=== PATIENT | male | born 1960 | race Caucasian/White ===

== ENCOUNTER 2024-12-29 14:19 | Observation (INO) | payer OTHER ==
[2024-12-29 14:30] VITALS: BMI 27.3
[2024-12-29 15:37] LABS: ABSOLUTE IMMATURE GRANULOCYTES 0.03 x10^3/uL (0.0-0.031); BASOPHILS # 0.02 x10^3/uL (0.01-0.08); EOSINOPHIL % 1.6 % (0.8-7.0); EOSINOPHILS # 0.12 x10^3/uL (0.04-0.54); HEMATOCRIT 33.7 % (40.1-51.0); MCHC 32.6 g/dl (32.3-36.5); MEAN CELL VOLUME 90.1 fl (79.0-92.2); MEAN PLT VOLUME 11.8 fl (9.4-12.4); MONOCYTE % 9.6 % (5.3-12.2); PLATELET COUNT 198 x10^3/uL (163-337); VENOUS BASE EXCESS -1.9 mmol/L (-2-2); VENOUS O2 SATURATION 39.6 % (70-80); VENOUS PCO2 48.9 mmHg (38-52); VENOUS PH 7.319 (7.310-7.410)
[2024-12-29] MEDS: LACTATED RINGERS SOLUTION 1000 ML INFUS.BAG IV ONE (15:43)
[2024-12-29 15:44] LABS: INR 0.96 (0.83-1.09); PROTHROMBIN TIME (PATIENT) 10.5 SEC (9.7-13.0)
[2024-12-29 15:47] LABS: ACTIVATED PTT 27.3 SECONDS (25.2-36.5)
[2024-12-29 15:52] LABS: EPI CELLS 5 /uL (0-25.1); HYALINE CASTS 0 /uL (0-3.1); URINE APPEARANCE CLEAR; URINE BACTERIA 2 /uL (0-1359); URINE BILIRUBIN NEGATIVE (NEGATIVE); URINE COLOR YELLOW; URINE GLUCOSE (UA) 3+ (NEGATIVE); URINE KETONE NEGATIVE (NEGATIVE); URINE LEUK ESTERASE NEGATIVE (NEGATIVE); URINE NITRITE NEGATIVE (NEGATIVE); URINE PROTEIN 2+ (NEGATIVE); URINE RBC 24 /uL (0-23.9); URINE UROBILINOGEN 0.2 mg/dL (0.2-1.0); URINE WBC 5 /uL (0-25.8)
[2024-12-29 16:00] LABS: CHLORIDE 102 mmol/L (98-107); SODIUM 135 mmol/L (136-145)
[2024-12-29 16:03] LABS: BLOOD UREA NITROGEN 51.4 mg/dL (7-18); CALCIUM 9.2 mg/dL (8.5-10.1); CO2 26 mmol/L (21-32)
[2024-12-29 16:06] LABS: SGOT/AST 14 U/L (15-37); SGPT/ALT 19 U/L (13-61)
[2024-12-29 16:08] LABS: BILIRUBIN,TOTAL 0.3 mg/dL (0.2-1); TOT PROT 6.9 g/dl (6.4-8.2)
[2024-12-29 16:09] LABS: ALK PHOS 121 U/L (45-117); ANION GAP 7 mmol/L (4-13); GLUCOSE,RANDOM 404 mg/dL (74-106); POTASSIUM 6.1 mmol/L (3.5-5.1)
[2024-12-29] MEDS ORDERED: ALBUTEROL SO4 0.083% IH SOL 2.5 MG/3 ML VIAL.NEB. NEB ONE (16:29)
[2024-12-29] MEDS ORDERED: INSULIN REGULAR HUMAN 100 UNITS/ML *VIAL ONE (16:30)
[2024-12-29] MEDS: ALBUTEROL SO4 0.083% IH SOL 2.5 MG/3 ML VIAL.NEB. NEB ONE (16:37)
[2024-12-29] MEDS: LOSARTAN POTASSIUM 50 MG TABLET PO ONE (17:44)
[2024-12-29] MEDS: CALCIUM GLUCONATE 10% - 1,000 MG/10 ML VIAL IVPB ONE (17:46)
[2024-12-29] MEDS: SODIUM ZIRCONIUM CYCLOSILICATE (LOKELMA) 5 GM PACKET PO SCH (18:23)
[2024-12-29] MEDS: INSULIN REGULAR HUMAN 100 UNITS/ML *VIAL IVPUSH ONE ×3 (18:24→19:53)
[2024-12-29] MEDS ORDERED: INSULIN REGULAR HUMAN 100 UNITS/ML *VIAL IVPUSH ONE ×2 (18:30)
[2024-12-29 19:20] LABS: MAGNESIUM 2.5 mg/dL (1.8-2.4)
[2024-12-29 19:24] LABS: PHOSPHOROUS 4.9 mg/dL (2.5-4.9)
[2024-12-29 19:25] LABS: LDL CHOLESTEROL (ONLY SJRH) 144 mg/dL (5-100)
[2024-12-29 19:27] LABS: HDL CHOLESTEROL 33 mg/dL (40-60)
[2024-12-29 20:06] LABS: POTASSIUM 4.7 mmol/L (3.5-5.1)
[2024-12-29 20:10] LABS: BLOOD UREA NITROGEN 51.7 mg/dL (7-18); CALCIUM 9.8 mg/dL (8.5-10.1)
[2024-12-29 20:14] LABS: CREATININE 2.7 mg/dL (0.55-1.3)
[2024-12-29 21:07] LABS: CHOLESTEROL 261 mg/dL (50-200)
[2024-12-29] MEDS: amLODIPine BESYLATE 5 MG TABLET (FP) PO ONE (21:39)
[2024-12-29] MEDS: HEPARIN NA (PORCINE) 5,000 UNITS/ML 1ML VIAL SQ SCH (21:39)
[2024-12-29] MEDS: SODIUM BICARBONATE 8.4% - 75 MEQ in DEXTROSE 5%-WATER - 1,000 ML IV SCH (21:39)
[2024-12-29] MEDS: INSULIN ASPART SLIDING SCALE (NOVOLOG) 1 VIAL SQ SCH (21:43)
[2024-12-29] MEDS ORDERED: INSULIN GLARGINE (LANTUS) 100 UNITS/ML UNITS SQ SCH (22:00)
[2024-12-29] MEDS ORDERED: HEPARIN NA (PORCINE) 5,000 UNITS/ML 1ML VIAL SQ SCH (22:00)
[2024-12-29] MEDS: hydrALAZINE HCL 25 MG TABLET (FP) PO ONE (22:26)
[2024-12-29] MEDS: SODIUM CHLORIDE 1,000 ML IV SCH (22:29)
[2024-12-30] MEDS: hydrALAZINE HCL 20 MG/ML VIAL IVPUSH ONE (01:53)
[2024-12-30] MEDS ORDERED: INSULIN ASPART SLIDING SCALE (NOVOLOG) 1 VIAL SQ ONE (07:00)
[2024-12-30 07:32] LABS: ABSOLUTE IMMATURE GRANULOCYTES 0.03 x10^3/uL (0.0-0.031); BASOPHILS # 0.02 x10^3/uL (0.01-0.08); EOSINOPHIL % 1.8 % (0.8-7.0); EOSINOPHILS # 0.15 x10^3/uL (0.04-0.54); HEMATOCRIT 32.4 % (40.1-51.0); HEMOGLOBIN 10.5 g/dL (13.7-17.5); MCHC 32.4 g/dl (32.3-36.5); MEAN CELL VOLUME 89.8 fl (79.0-92.2); MEAN PLT VOLUME 12.1 fl (9.4-12.4); MONOCYTE # 0.67 x10^3/uL (0.30-0.82); MONOCYTE % 8.2 % (5.3-12.2); PLATELET COUNT 212 x10^3/uL (163-337); RDW 12.8 % (12.2-16.4)
[2024-12-30 07:52] LABS: POTASSIUM 5.1 mmol/L (3.5-5.1)
[2024-12-30 07:55] LABS: CALCIUM 9.2 mg/dL (8.5-10.1)
[2024-12-30 07:56] LABS: ALBUMIN 3.1 g/dl (3.4-5.0); BLOOD UREA NITROGEN 45.6 mg/dL (7-18); MAGNESIUM 1.9 mg/dL (1.8-2.4)
[2024-12-30 07:59] LABS: CREATININE 2.3 mg/dL (0.55-1.3); PHOSPHOROUS 4.5 mg/dL (2.5-4.9)
[2024-12-30 08:01] LABS: BILIRUBIN,TOTAL 0.3 mg/dL (0.2-1); TOT PROT 6.6 g/dl (6.4-8.2)
[2024-12-30] MEDS ORDERED: amLODIPine BESYLATE 5 MG TABLET (FP) PO SCH (10:00)
[2024-12-30 10:03] VITALS: RESP 18
[2024-12-30] MEDS: amLODIPine BESYLATE 10 MG TABLET (FP) PO SCH (10:09)
[2024-12-30] MEDS: ASPIRIN COATED 81 MG TABLET.EC PO SCH (10:09)
[2024-12-30] MEDS: LACTATED RINGERS SOLUTION 1,000 ML/1,000 ML INFUS.BAG IV SCH (10:16)
[2024-12-30] MEDS: SODIUM CHLORIDE 0.45% 1,000 ML IV SCH (17:02)
[2024-12-30] MEDS: hydrALAZINE HCL 25 MG TABLET (FP) PO SCH (18:32)
[2024-12-30] MEDS: NIFEdipine E.R. 30 MG TABLET PO SCH (18:32)
[2024-12-30] MEDS: guaiFENesin 600 MG TABLET.ER (FP) PO SCH (18:32)
[2024-12-30] MEDS: INSULIN GLARGINE (LANTUS) 100 UNITS/ML UNITS SQ SCH (21:47)
[2024-12-30] MEDS: ROSUVASTATIN CA 20 MG TABLET PO SCH (21:47)
[2024-12-30] MEDS ORDERED: ATORVASTATIN CA 40 MG TABLET (FP) PO SCH (22:00)
[2024-12-31 08:22] LABS: HEMATOCRIT 36.6 % (40.1-51.0); HEMOGLOBIN 11.8 g/dL (13.7-17.5); MCHC 32.2 g/dl (32.3-36.5); MEAN CELL VOLUME 89.5 fl (79.0-92.2); MEAN PLT VOLUME 12.1 fl (9.4-12.4); PLATELET COUNT 217 x10^3/uL (163-337); RDW 12.9 % (12.2-16.4)
[2024-12-31 09:04] LABS: POTASSIUM 5.2 mmol/L (3.5-5.1)
[2024-12-31 09:21] LABS: ALBUMIN 3.2 g/dl (3.4-5.0); BLOOD UREA NITROGEN 36.7 mg/dL (7-18); CALCIUM 9.4 mg/dL (8.5-10.1)
[2024-12-31 09:24] LABS: CREATININE 2.1 mg/dL (0.55-1.3)
[2024-12-31 09:25] LABS: BILIRUBIN,TOTAL 0.4 mg/dL (0.2-1); TOT PROT 6.9 g/dl (6.4-8.2)
[2024-12-31] MEDS ORDERED: INSULIN GLARGINE (LANTUS) 100 UNITS/ML UNITS SQ SCH (10:55)
[2024-12-31] MEDS: INSULIN GLARGINE (LANTUS) 100 UNITS/ML UNITS SQ SCH (11:33)
[2024-12-31] MEDS: OMEGA-3 ACID ETHYL ESTERS (FATTY-ACIDS) 1 GM CAPSULE (FP) PO SCH (21:46)
[2024-12-31] MEDS: guaiFENesin 600 MG TABLET.ER (FP) PO SCH (21:47)
[2025-01-01 07:38] LABS: ABSOLUTE IMMATURE GRANULOCYTES 0.03 x10^3/uL (0.0-0.031); BASOPHILS # 0.03 x10^3/uL (0.01-0.08); EOSINOPHILS # 0.19 x10^3/uL (0.04-0.54); HEMATOCRIT 34.3 % (40.1-51.0); MCHC 32.1 g/dl (32.3-36.5); MEAN CELL VOLUME 90.3 fl (79.0-92.2); MONOCYTE # 0.83 x10^3/uL (0.30-0.82); MONOCYTE % 8.8 % (5.3-12.2); PLATELET COUNT 231 x10^3/uL (163-337); RDW 13.3 % (12.2-16.4)
[2025-01-01 07:59] LABS: CALCIUM 8.9 mg/dL (8.5-10.1)
[2025-01-01 08:00] LABS: BLOOD UREA NITROGEN 45.2 mg/dL (7-18)
[2025-01-01 08:03] LABS: CREATININE 2.6 mg/dL (0.55-1.3)
[2025-01-01 08:04] LABS: BILIRUBIN,TOTAL 0.4 mg/dL (0.2-1); TOT PROT 6.8 g/dl (6.4-8.2)
[2025-01-01 15:13] VITALS: BP 149/84; PULSE 90; TEMP 97.5
== END 2025-01-01 15:37 | disposition home or self-care (01) ==
LOC: JER 14:19 → JERBED 16:16 → J4W 17:36
PROVIDERS: ADMIT Internal Medicine; ATTEND Internal Medicine
PROC: 3E0F7GC Introduction of Other Therapeutic Substance into Respiratory Tract, Via Natural or Artificial Opening (ICD-10-PCS; principal; 2024-12-29)
PROC: 3E0337Z Introduction of Electrolytic and Water Balance Substance into Peripheral Vein, Percutaneous Approach (ICD-10-PCS; 2024-12-29)
PROC: 3E023GC Introduction of Other Therapeutic Substance into Muscle, Percutaneous Approach (ICD-10-PCS; 2024-12-29)
PROC: 3E013VG Introduction of Insulin into Subcutaneous Tissue, Percutaneous Approach (ICD-10-PCS; 2024-12-29)
PROC: 3E033VG Introduction of Insulin into Peripheral Vein, Percutaneous Approach (ICD-10-PCS; 2024-12-29)
PROC: 3E033GC Introduction of Other Therapeutic Substance into Peripheral Vein, Percutaneous Approach (ICD-10-PCS; 2024-12-29)
DX: E11.65 Type 2 diabetes mellitus with hyperglycemia (principal); E11.22 Type 2 diabetes mellitus with diabetic chronic kidney disease; I12.9 Hypertensive chronic kidney disease with stage 1 through stage 4 chronic kidney disease, or unspecified chronic kidney disease; N18.9 Chronic kidney disease, unspecified; E78.5 Hyperlipidemia, unspecified; N17.9 Acute kidney failure, unspecified; E87.5 Hyperkalemia; R80.9 Proteinuria, unspecified; N28.1 Cyst of kidney, acquired
CPT/HCPCS: 36415; 71045-TC-FY; 76775-TC; 80048; 80053; 80061; 81003; 82010; 82550; 82607; 82803; 82962; 83036; 83690; 83735; 84100; 84478; 84484; 85025; 85027; 85610; 85730; 87086; 93005; 93010; 94640; 96360; 96361; 96365; 96372; 96375; 96376; 99285-25; G0378